=== PATIENT | male | born 2000 | race Two or more races ===

== ENCOUNTER 2024-05-14 22:11 | Emergency (ER) | payer OTHER, SELFPAY ==
[2024-05-14 22:51] VITALS: BP 150/89; PULSE 97; RESP 17; TEMP 36.7; O2SAT 100; BMI 30.8
[2024-05-14] MEDS: DIPHTH,PERTUSS(ACELL),TET VAC 0.5 ML VIAL IMi (23:05)
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
== END 2024-05-15 00:22 | disposition home or self-care (01) ==
PROVIDERS: Emergency Provider Emergency Medicine; PCP Nurse Practitioner Family
DX: S01.511A Laceration without foreign body of lip, initial encounter (principal); Y04.0XXA Assault by unarmed brawl or fight, initial encounter; Y99.0 Civilian activity done for income or pay; Z23 Encounter for immunization
CPT/HCPCS: 12011; 90471; 90715; 99283